=== PATIENT | female | born 1975 | race Caucasian/White ===

== ENCOUNTER 2016-07-18 20:12 | Emergency (ER) | payer BC, OTHER ==
[2016-07-18] MEDS ORDERED: ASPIRIN 81 MG TABLET, CHEWABLE PO ONE (21:31)
--- NOTE | 2016-07-18 21:32 | ER Document Report ---
ED Medical Screen (RME) - General Chief Complaint: Chest Pain Stated Complaint: CHEST DISCOMFORT Mode of Arrival: Ambulatory Information source: Patient Notes: Patient presents to the emergency department with complaints of chest pain tightness the last couple days reports her stomach feels upset also. Denies history of cardiac disease. Reports this happened about 6 years ago when she had a stress test which was negative. Patient real Emotional reports she has a high co-pay - Related Data Allergies/Adverse Reactions: No Known Allergies Allergy (Unverified 07/18/16 20:37) Past Medical History - Past Medical History Cardiac Medical History: Denies: Hx Heart Attack, Hx Hypertension Pulmonary Medical History: Denies: Hx Asthma Neurological Medical History: Denies: Hx Cerebrovascular Accident, Hx Seizures Renal/ Medical History: Denies: Hx Peritoneal Dialysis GI Medical History: Denies: Hx Hepatitis, Hx Hiatal Hernia, Hx Ulcer Infectious Medical History: Denies: Hx Hepatitis Past Surgical History: Denies: Hx Hysterectomy, Hx Open Heart Surgery, Hx Pacemaker Physical Exam - Vital signs Vitals: Temp Pulse Resp BP Pulse Ox 98.6 F 73 20 133/87 H 99 07/18/16 20:41 07/18/16 20:41 07/18/16 20:41 07/18/16 20:41 07/18/16 20:41 Course - Vital Signs Vital signs: Temp Pulse Resp BP Pulse Ox 98.6 F 73 20 133/87 H 99 07/18/16 20:41 07/18/16 20:41 07/18/16 20:41 07/18/16 20:41 07/18/16 20:41
[2016-07-18] MEDS ORDERED: ASPIRIN 81 MG TABLET, CHEWABLE ONE (21:33)
[2016-07-18 21:51] LABS: ABSOLUTE EOSINOPHILS # (AUTO) 0.1 10^3/uL (0.0-0.6); ABSOLUTE LYMPHOCYTES (AUTO) 1.9 10^3/uL (0.5-4.7); ABSOLUTE MONOCYTES (AUTO) 0.4 10^3/uL (0.1-1.4); ABSOLUTE NEUT (AUTO) 5.2 10^3/uL (1.7-8.2); BASOPHILS % (AUTO) 0.6 % (0-2); EOSINOPHILS % (AUTO) 1.9 % (0-6); HEMATOCRIT 38.4 % (36.0-47.0); HGB HCT DIFFERENCE 0.6; LYMPHOCYTES % (AUTO) 24.9 % (13-45); MEAN CORPUSCULAR HEMOGLOBIN 30.2 pg (27.0-33.4); MEAN CORPUSCULAR HGB CONC 33.9 g/dL (32.0-36.0); MEAN CORPUSCULAR VOLUME 89 fl (80-97); MONOCYTES % (AUTO) 5.5 % (3-13); RED CELL DISTRIBUTION WIDTH 12.9 % (11.5-14.0); SEGMENTED NEUTROPHILS % (AUTO) 67.1 % (42-78); WHITE BLOOD COUNT 7.7 10^3/uL (4.0-10.5)
[2016-07-18 22:09] LABS: ALANINE AMINOTRANSFERASE 30 U/L (9-52); ALBUMIN 4.8 g/dL (3.5-5.0); ALKALINE PHOSPHATASE 43 U/L (38-126); ANION GAP 10 (5-19); ASPARTATE AMINO TRANSFERASE 24 U/L (14-36); BILIRUBIN,TOTAL 1.8 mg/dL (0.2-1.3); BLOOD UREA NITROGEN 6 mg/dL (7-20); CALCIUM 9.8 mg/dL (8.4-10.2); CARBON DIOXIDE 30 mmol/L (22-30); CHLORIDE 101 mmol/L (98-107); CREATINE KINASE 67 U/L (30-135); CREATININE RESULT 0.56 mg/dL (0.52-1.25); GLUCOSE 95 mg/dL (75-110); POTASSIUM 3.8 mmol/L (3.6-5.0); SODIUM 140.5 mmol/L (137-145); TOTAL PROTEIN 7.4 g/dL (6.3-8.2)
[2016-07-18 22:19] LABS: CREATINE KINASE MB 0.72 ng/mL (<4.55)
[2016-07-18 22:21] LABS: TROPONIN I < 0.012 ng/mL
--- NOTE | 2016-07-19 00:57 | ER Document Report ---
ED General - General Chief Complaint: Chest Pain Stated Complaint: CHEST DISCOMFORT Mode of Arrival: Ambulatory Information source: Patient Notes: Patient presents emergency department with complaints of chest tightness. Pt reports chest tightness that comes/goes for the past 5 weeks, increased the last couple of days. 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 States she thought her pain was from a muscle injury. States yesterday/today pain began radiating to right upper chest, and now for the last few hours has been sternal radiating to back. Denies n/v/f/d. States last few hours a feeling of SOB. States 2010 had episode of chest pain that was not severe like this with a negative stress test. - HPI Onset: Other Onset/Duration: Persistent Quality of pain: Other - tight Severity: Moderate Pain Level: 3 Associated symptoms: None Exacerbated by: Denies Relieved by: Denies Similar symptoms previously: Yes Recently seen / treated by doctor: No - Related Data Allergies/Adverse Reactions: No Known Allergies Allergy (Unverified 07/18/16 20:37) Past Medical History - General Information source: Patient - Social History Smoking Status: Never Smoker Cigarette use (# per day): No Frequency of alcohol use: None Drug Abuse: None Lives with: Family Family History: Reviewed & Not Pertinent Patient has suicidal ideation: No Patient has homicidal ideation: No - Medical History Medical History: Negative - Past Medical History Cardiac Medical History: Denies: Hx Heart Attack, Hx Hypertension Pulmonary Medical History: Denies: Hx Asthma Neurological Medical History: Denies: Hx Cerebrovascular Accident, Hx Seizures Renal/ Medical History: Denies: Hx Peritoneal Dialysis GI Medical History: Denies: Hx Hepatitis, Hx Hiatal Hernia, Hx Ulcer Infectious Medical History: Denies: Hx Hepatitis Surgical Hx: Negative Past Surgical History: Denies: Hx Hysterectomy, Hx Open Heart Surgery, Hx Pacemaker Review of Systems - Review of Systems Notes: Review HPI for review of systems., All other systems negative Physical Exam - Vital signs Vitals: Temp Pulse Resp BP Pulse Ox 98.6 F 73 20 133/87 H 99 07/18/16 20:41 07/18/16 20:41 07/18/16 20:41 07/18/16 20:41 07/18/16 20:41 - Notes Notes: PHYSICAL EXAMINATION: GENERAL: Well-appearing and in no acute distress nontoxic looking, anxious HEAD: Atraumatic, normocephalic. EYES: Pupils equal round extraocular movements intact, sclera anicteric, conjunctiva are normal. ENT: nares patent, Moist mucous membranes. NECK: Normal range of motion, supple without lymphadenopathy LUNGS: CTAB and equal. No wheezes rales or rhonchi. HEART: Regular rate and rhythm without murmurs ABDOMEN: reports some epigastric ttp BACK: No c/o pain EXTREMITIES: Normal range of motion, no pitting edema. No cyanosis. NEUROLOGICAL: Cranial nerves grossly intact. Normal sensory/motor exams. PSYCH: Normal mood, normal affect. SKIN: Warm, Dry, normal turgor, no rashes or lesions noted Course - Re-evaluation Re-evalutation: 07/19/16 00:56 Presentation of chest pain in an otherwise well-appearing patient. Low clinical suspicion for ACS given the clinical history, exam, EKG without ST elevation or depressions, and negative initial troponin. Heart score less than or equal to 3. PE also seems unlikely given the clinical history, absence of tachycardia or dyspnea. Patient's PERC criteria is negative. Chest x-ray without evidence of pneumothorax or pneumonia. No widened mediastinum. Inferior dissection also seems unlikely given history, symmetric pulses, chest x -ray and vitals. Given the reassuring evaluation, will plan for discharge home at this time with return precautions and follow-up recommendations. Patient has been instructed to return if symptoms worsen or change in any way. HEART score- 0 History=0 ECG=0 Age=0 Risk Factors=0 Troponin=0 Total=0 Chest pain in a patient without evidence of cardiac or other serious etiology during the workup today. I discussed with patient that based on age, risk factors and emergency department testing, the likelihood that her symptoms are related to her heart is very low (estimated risk of heart attack or over the next 30 days of less than 1% ). The patient demonstrates decision-making capacity and has verbalized an understanding of these risks to me. Based on this, the patient was instructed to follow-up up as an outpatient. Usual chest pain return precautions reviewed. Patient verbalized understanding. - Vital Signs Vital signs: Temp Pulse Resp BP Pulse Ox 98.6 F 69 20 117/81 98 07/18/16 20:41 07/19/16 01:09 07/18/16 20:41 07/19/16 01:09 07/19/16 01:09 - Laboratory Result Diagrams: 07/18/16 21:38 07/18/16 21:38 Laboratory results interpreted by me: 07/18/16 21:38 BUN 6 L Total Bilirubin 1.8 H - Diagnostic Test Radiology reviewed: Image reviewed, Reports reviewed - EXAM DESCRIPTION: CHEST PA/LAT COMPLETED DATE/TIME: 07/18/2016 9:48 pm REASON FOR STUDY: chest pain COMPARISON: June 2010 EXAM PARAMETERS: NUMBER OF VIEWS: two views TECHNIQUE : Digital Frontal and Lateral radiographic views of the chest acquired. RADIATION DOSE: NA LIMITATIONS: none FINDINGS: LUNGS AND PLEURA: No opacities , masses or pneumothorax. No pleural effusion. MEDIASTINUM AND HILAR STRUCTURES : No masses or contour abnormalities. HEART AND VASCULAR STRUCTURES: Heart normal size. No evidence for failure. BONES: No acute findings. HARDWARE: None in the chest. OTHER: No other significant finding. TECHNICAL DOCUMENTATION: JOB ID: [id number] [employer]- All Rights Reserved RAD/CHEST PA/LAT IMPRESSION: NO SIGNIFICANT RADIOGRAPHIC FINDING IN THE CHEST - EKG Interpretation by Me EKG shows normal: Sinus rhythm Discharge - Discharge Clinical Impression: Elevated blood pressure reading Chest pain, unspecified Qualifiers: Chest pain type: unspecified Qualified Code(s): R07.9 - Chest pain, unspecified Condition: Stable Disposition: HOME, SELF-CARE Instructions: Chest Pain of Unclear Cause ([facility]), Aspirin (Cardiac) ([facility]) Additional Instructions: *You have been evaluated for chest pain *Follow up with a primary care provider within 3 days *Follow up with a chain puller within one week for recheck *Monitor your blood pressure *Return to ED for worsening condition, changes, needs *Return to ED if not better in 24 hours Monitor your blood pressure. Your blood pressure was elevated today. This may be because you were anxious, in pain or because you need medication. It is important to follow up with your primary care provider for full evaluation. Forms: Elevated Blood Pressure, Return to Work Referrals: SEYMOUR PHILLIPS MD [Primary Care Provider] - Follow up as needed
[2016-07-19 01:13] VITALS: BP 117/81
--- NOTE | 2016-07-20 15:45 | EKG REPORT ---
SEVERITY:- NORMAL ECG - SINUS RHYTHM : Confirmed by: Nia Urbina MD 20-Jul-2016 15:44:38
== END 2016-07-19 01:02 | disposition home or self-care (01) ==
LOC: ER 20:12
DX: R07.9 Chest pain, unspecified (principal); R03.0 Elevated blood-pressure reading, without diagnosis of hypertension
CPT/HCPCS: 36415; 71020; 80053; 82550; 82553; 84484; 84703; 85025; 93005; 93010; 99285

== ENCOUNTER 2016-07-20 11:20 | Emergency (ER) | payer SELFPAY ==
--- NOTE | 2016-07-20 12:07 | ER Document Report ---
ED Medical Screen (RME) - General Chief Complaint: Shortness Of Breath Stated Complaint: DIFFICULTY BREATHING Notes: Patient is here because of continuing chest pain and feeling difficulty breathing. She was seen here Sunday for these symptoms. She says she's been having left-sided chest pain for several months, comes and goes. She felt it might initially have been related to her beginning to lift weights, but the symptoms have persisted. She's recently had this pain now moved to the right side of her chest and into her right back. She went out to run a couple of days ago and came home and felt very lightheaded. She feels as if her heart is pounding and fluttering and she might pass out. Has never had problems with blood clots. Patient was seen here Sunday and had a normal workup. She was referred to be followed up by verifying machine operator, but says that they won't see her because she has ongoing "issues". She returns here today very anxious, hyperventilating, anxious, and even tearful. TRAVEL OUTSIDE OF THE [place] IN LAST 30 DAYS: No - Related Data Allergies/Adverse Reactions: No Known Allergies Allergy (Verified 07/20/16 11:25) Past Medical History - Past Medical History Cardiac Medical History: Denies: Hx Heart Attack, Hx Hypertension Pulmonary Medical History: Denies: Hx Asthma Neurological Medical History: Denies: Hx Cerebrovascular Accident, Hx Seizures Renal/ Medical History: Denies: Hx Peritoneal Dialysis GI Medical History: Denies: Hx Hepatitis, Hx Hiatal Hernia, Hx Ulcer Infectious Medical History: Denies: Hx Hepatitis Past Surgical History: Denies: Hx Hysterectomy, Hx Open Heart Surgery, Hx Pacemaker Physical Exam - Vital signs Vitals: Temp Pulse Resp BP Pulse Ox 98.7 F 82 20 133/91 H 100 07/20/16 11:25 07/20/16 11:25 07/20/16 11:25 07/20/16 11:25 07/20/16 11:25 Course - Vital Signs Vital signs: Temp Pulse Resp BP Pulse Ox 98.7 F 82 20 133/91 H 100 07/20/16 11:25 07/20/16 11:25 07/20/16 11:25 07/20/16 11:25 07/20/16 11:25
[2016-07-20 12:24] LABS: ABSOLUTE EOSINOPHILS # (AUTO) 0.1 10^3/uL (0.0-0.6); ABSOLUTE LYMPHOCYTES (AUTO) 1.4 10^3/uL (0.5-4.7); ABSOLUTE MONOCYTES (AUTO) 0.3 10^3/uL (0.1-1.4); ABSOLUTE NEUT (AUTO) 4.6 10^3/uL (1.7-8.2); BASOPHILS % (AUTO) 0.4 % (0-2); EOSINOPHILS % (AUTO) 1.1 % (0-6); HEMATOCRIT 37.8 % (36.0-47.0); HEMOGLOBIN 12.8 g/dL (12.0-15.5); HGB HCT DIFFERENCE 0.6; LYMPHOCYTES % (AUTO) 21.7 % (13-45); MEAN CORPUSCULAR HEMOGLOBIN 30.4 pg (27.0-33.4); MEAN CORPUSCULAR VOLUME 90 fl (80-97); MONOCYTES % (AUTO) 4.8 % (3-13); RED BLOOD COUNT 4.22 10^6/uL (3.72-5.28); RED CELL DISTRIBUTION WIDTH 13.4 % (11.5-14.0); WHITE BLOOD COUNT 6.4 10^3/uL (4.0-10.5)
[2016-07-20 12:47] LABS: ALANINE AMINOTRANSFERASE 32 U/L (9-52); ALBUMIN 4.9 g/dL (3.5-5.0); ALKALINE PHOSPHATASE 39 U/L (38-126); ANION GAP 12 (5-19); ASPARTATE AMINO TRANSFERASE 25 U/L (14-36); BILIRUBIN,TOTAL 1.5 mg/dL (0.2-1.3); BLOOD UREA NITROGEN 7 mg/dL (7-20); CALCIUM 9.8 mg/dL (8.4-10.2); CARBON DIOXIDE 27 mmol/L (22-30); CHLORIDE 105 mmol/L (98-107); CREATINE KINASE 41 U/L (30-135); GLUCOSE 107 mg/dL (75-110); POTASSIUM 4.1 mmol/L (3.6-5.0); SODIUM 144.1 mmol/L (137-145)
[2016-07-20 12:48] LABS: CREATININE RESULT 0.54 mg/dL (0.52-1.25); TOTAL PROTEIN 7.5 g/dL (6.3-8.2)
[2016-07-20 12:51] LABS: CREATINE KINASE MB < 0.22 ng/mL (<4.55); TROPONIN I < 0.012 ng/mL
[2016-07-20 13:00] LABS: BILIRUBIN,DIRECT 0.1 mg/dL (0.0-0.4)
--- NOTE | 2016-07-20 13:59 | ER Document Report ---
ED Cardiac - General Mode of Arrival: Ambulatory Information source: Patient TRAVEL OUTSIDE OF THE [place] IN LAST 30 DAYS: No - HPI Patient complains to provider of: Chest pain, Shortness of breath Use of: Caffeine - 3 cups of coffee a day Chest pain location: Substernal, Other - right chest Associated symptoms: Other - see notes above <VICENTA ARTEAGA - Last Filed: 07/20/16 17:20> <MAMADOU NAVARRO - Last Filed: 07/20/16 18:29> - General Chief Complaint: Shortness Of Breath Stated Complaint: DIFFICULTY BREATHING Notes: 40 year old female presents to the ED complaining of intermittent right chest pain that started a "few weeks" ago. Patient reports that she started lifting weight a few weeks ago and originally attributed the chest pain to muscle fatigue, but realized that she continued to have chest pain weeks after stopping weight lifting. Patient went on a run 3 days ago and felt lightheaded following it. That night the patient started having right chest pain with a "flutter" feeling. 2 days ago the patient developed substernal chest pain, lightheadedness, and numbness to the bilateral legs. Patient also complains of having shortness of breath when having conversations. Patient called her friend who is an ER physician and he recommended that the patient go to the ED and get it evaluated. Patient came to the ED 2 nights ago and was referred to see a industrial sweeper cleaner. Patient had intermittent chest pain yesterday. Patient was supposed to have an appointment with a industrial sweeper cleaner today, but was told to come to the ED because she was having active symptoms. (VICENTA ARTEAGA) - Related Data Allergies/Adverse Reactions: No Known Allergies Allergy (Verified 07/20/16 14:39) Past Medical History - General Information source: Patient - Social History Smoking Status: Unknown if Ever Smoked Family History: Reviewed & Not Pertinent Patient has suicidal ideation: No Patient has homicidal ideation: No Renal/ Medical History: Denies: Hx Peritoneal Dialysis Infectious Medical History: Denies: Hx Hepatitis Past Surgical History: <VICENTA ARTEAGA - Last Filed: 07/20/16 17:20> Review of Systems - Review of Systems Constitutional: No symptoms reported EENT: No symptoms reported Cardiovascular: See HPI, Chest pain, Lightheaded Respiratory: See HPI, Short of breath Gastrointestinal: No symptoms reported Genitourinary: No symptoms reported Female Genitourinary: No symptoms reported Musculoskeletal: No symptoms reported Skin: No symptoms reported Hematologic/Lymphatic: No symptoms reported Neurological/Psychological: See HPI, Numbness - to bilateral legs -: Yes All other systems reviewed and negative <VICENTA ARTEAGA - Last Filed: 07/20/16 17:20> Physical Exam - General General appearance: Alert In distress: None - HEENT Head: Normocephalic, Atraumatic Eyes: Normal Extraocular movements intact: Yes Pupils: PERRL - Respiratory Respiratory status: No respiratory distress Breath sounds: Normal Chest palpation: Other - palpable lump to the left lateral breast consistent with a fibroma. - Cardiovascular Rhythm: Regular Heart sounds: Normal auscultation - Abdominal Inspection: Normal Distension: No distension Tenderness: Nontender - Back Back: Normal, Nontender - Extremities General upper extremity: Normal inspection, Normal ROM General lower extremity: Normal inspection, Normal ROM - Neurological Neuro grossly intact: Yes Cognition: Normal Orientation: AAOx4 [place] Coma Scale Eye Opening: Spontaneous [place] Coma Scale Verbal: Oriented [place] Coma Scale Motor: Obeys Commands [place] Coma Scale Total: 15 Speech: Normal - Psychological Associated symptoms: Normal affect, Normal mood - Skin Skin Temperature: Warm Skin Moisture: Dry Skin Color: Normal <JENNIVICENTA - Last Filed: 07/20/16 17:20> Course - Laboratory Result Diagrams: 07/20/16 12:05 07/20/16 12:05 <VICENTA ARTEAGA - Last Filed: 07/20/16 17:20> - Laboratory Result Diagrams: 07/20/16 12:05 07/20/16 12:05 - Diagnostic Test Radiology reviewed: Reports reviewed - EKG Interpretation by Dc EKG shows normal: Sinus rhythm Rate: Normal Rhythm: NSR <MAMADOU NAVARRO - Last Filed: 07/20/16 18:29> - Re-evaluation Re-evalutation: 07/20/16 Patient with no acute finding on blood work or imaging. No evidence for PE. Patient appears well. Patient had attempted to follow-up with cardiology bolus in the emergency department and has a benign work appear. Patient will be discharged home and is to return if she has any worsening or concerning symptoms. Stable for discharge. Understands and agrees with plan. (MAMADOU NAVARRO) - Vital Signs Vital signs: Temp Pulse Resp BP Pulse Ox 99.3 F 82 19 113/76 96 07/20/16 16:01 07/20/16 11:25 07/20/16 15:43 07/20/16 15:43 07/20/16 15:43 - Laboratory Laboratory results interpreted by me: 07/20/16 12:05 Total Bilirubin 1.5 H Discharge <VICENTA ARTEAGA - Last Filed: 07/20/16 17:20> <MAMADOU NAVARRO - Last Filed: 07/20/16 18:29> - Discharge Clinical Impression: Palpitations Chest pain, unspecified Qualifiers: Chest pain type: unspecified Qualified Code(s): R07.9 - Chest pain, unspecified Condition: Stable Disposition: HOME, SELF-CARE Instructions: Palpitations (Irregular or Rapid Heartrate) ([facility]) Referrals: SEYMOUR PHILLIPS MD [Primary Care Provider] - Follow up as needed JOSE LUIS HARRIS MD [ACTIVE STAFF] - Follow up as needed Scribe Attestation: 07/20/16 18:29 I personally performed the services described in the documentation, reviewed and edited the documentation which was dictated to the scribe in my presence, and it accurately records my words and actions. (MAMADOU NAVARRO) Scribe Documentation - Scribe Written by Scribe:: Davida Rascon, 07/20/2016 1522 acting as scribe for :: Marely <VICENTA ARTEAGA - Last Filed: 07/20/16 17:20>
--- NOTE | 2016-07-20 15:45 | EKG REPORT ---
SEVERITY:- BORDERLINE ECG - SINUS RHYTHM BORDERLINE T ABNORMALITIES, ANTERIOR LEADS : Confirmed by: Nia Urbina MD 20-Jul-2016 15:44:30
[2016-07-20 15:51] VITALS: BP 113/76
== END 2016-07-20 16:01 | disposition home or self-care (01) ==
LOC: ER 11:20
DX: R07.89 Other chest pain (principal); R00.2 Palpitations; R20.0 Anesthesia of skin; R42 Dizziness and giddiness; R06.02 Shortness of breath; N63 Unspecified lump in breast
CPT/HCPCS: 36415; 71020; 80053; 82533; 82550; 82553; 82962; 84443; 84484; 84703; 85025; 85379; 93005; 93010; 99285

== ENCOUNTER → 2016-10-13 | Outpatient (CLI) | payer SELFPAY ==
--- NOTE | 2016-10-13 16:45 | WOMENS IMAGING REPORT ---
EXAM DESCRIPTION: BILAT SCREENING MAMMO W/CAD COMPLETED DATE/TIME: 10/13/2016 8:17 am REASON FOR STUDY: Z12.31, ROUTINE SCREENING MAMMO Z12.31 ENCNTR SCREEN MAMMOGRAM FOR MALIGNANT NEOP LASM OF STALIN COMPARISON: Baseline study TECHNIQUE: Standard craniocaudal and mediolateral oblique views of each breast recorded using [employer] l acquisition. LIMITATIONS: None. FINDINGS: No masses, calcifications or architectural distortion. No areas of suspicion. Read with the assistance of CAD. [facility] - R2 Cenova Version 1.3 .[facility] - R2 Cenova Version 1.3 .[facility] - R2 Cenova Version 2.4 .[facility] [place] R2 Cenova Version 2.4 .[facility] - R2 Website/Blog Editor Version 9.2 IMPRESSION: NORMAL MAMMOGRAM. BIRADS 1. BREAST DENSITY: d. The breasts are extremely dense, which lowers the sensitivity of mammography. BIRAD: 1 NEGATIVE RECOMMENDATION: ROUTINE SCREENING Please consider bilateral screening tomosynthesis and September 2017 given extremely dense fibroglandular tissue. COMMENT: The patient has been notified of the results by letter per MQSA requirements. Additional no tification policies are in place for contacting patient with suspicious or incomplete findings. Quality ID #[id number]: The [employer] [place] [employer] recommends an annual screening mammogram for women aged 40 years or over. This facility utilizes a reminder system to ensure that all patients receive reminder letters, and/or direct phone calls for appointments. This includes reminders for routine scr eening mammograms, diagnostic mammograms, or other Breast Imaging Interventions when appropriate. Th is patient will be placed in the appropriate reminder system. The [employer] [place] [employer] (ACR) has developed recommendations for screening MRI of the breast s in certain patient populations, to be used in conjunction with mammography. Breast MRI surveillanc e may be appropriate for women with more than 20% lifetime risk of developing breast cancer as deter mined by genetic testing, significant family history of the disease, or history of mantle radiation f or Hodgkins Disease. ACR Practice Guidelines 2008. TECHNICAL DOCUMENTATION: FINDING NUMBER: (1) ASSESSMENT: (1) JOB ID: [id number] [employer]- All Rights Reserved
== END ==
LOC: WI 08:55
PROVIDERS: ATTEND Nurse Practitioner Women's Health
DX: Z12.31 Encounter for screening mammogram for malignant neoplasm of breast (principal)
CPT/HCPCS: 77067; G0202